=== PATIENT | female | born 2000 | race Caucasian/White ===

== ENCOUNTER 2019-04-28 18:09 | Inpatient (IN) | payer OTHER ==
--- NOTE | 2019-04-28 13:42 | PDOC.LDHP ---
Labor and Delivery H&P Chief complaint: scheduled induction HPI: 19 yo G1 @ 40w3d by 22 week sono who presents for IOL. Pt has h/o depression, controlled on Cymbalta. Antepartum course otherwise benign. Current gestational age (weeks): 40 Due date: 04/25/19 Dating criteria: second trimester ultrasound Grav: 1 Para: 0 Current complications: none Abnormal US findings: No Past Medical History: Depression Anxiety Current medications: pre- vitamins, other (Cymbalta) Previous surgical history: none Allergies/Adverse Reactions: Allergies Allergy/AdvReac Type Severity Reaction Status Date / Time No Known Allergies Allergy Unverified 04/28/19 18:57 Social history: none - Physical Exam Vital signs reviewed and normal: yes General: NAD Heart: RRR Lungs: nonlabored breathing Abdomen: gravid Extremeties: no edema FHT: category 1 (120s, mod jacinda, +accels, no decels) [place] contractions every: q2-5 min when tracing - Vaginal Exam cm dilated: 3 (cephalic, AROM clear ) Effacement: 75% Station: -2 - OB Labs Blood type: A RH: positive Antibody Screen: negative HIV: negative RPR: negative HEPSAg: negative 1 hour GCT: positive 3 hour GTT: wnl GBS: positive Urine drug screen: negative Rubella: immune - Assessment 40w3d IUP IOL Depression GBS + - Plan Plan: admit to L&D, cervical ripening (s/p cytotec s/p AROM), GBS antibiotic prophylaxis, informed consent obtained, anesthesia consult for pain management -: Continue pitocin
[2019-04-28] MEDS ORDERED: HYDROcodone/Acetaminophen 5/325 mg Tablet PO PRN ×2 (18:43)
[2019-04-28] MEDS ORDERED: hydrALAZINE 20 MG/ML VIAL SLOW IVP PRN (18:43)
[2019-04-28] MEDS ORDERED: Acetaminophen 500 MG TAB PO PRN (18:43)
[2019-04-28] MEDS ORDERED: Diphenoxylate HCl/Atropine Tablet PO PRN (18:43)
[2019-04-28] MEDS ORDERED: Promethazine HCl 25 MG/ML VIAL IM PRN (18:43)
[2019-04-28] MEDS ORDERED: Lidocaine 1% (PF) 30 ML VIAL SC PRN (18:43)
[2019-04-28] MEDS ORDERED: Ibuprofen 800 MG TAB PO PRN (18:43)
[2019-04-28] MEDS ORDERED: Ondansetron PF 4 MG/2 ML Vial IVP PRN (18:43)
[2019-04-28] MEDS ORDERED: Methylergonovine 0.2 MG/ML VIAL IM PRN (18:43)
[2019-04-28] MEDS ORDERED: Misoprostol 200 MCG TAB PR PRN (18:43)
[2019-04-28] MEDS ORDERED: Carboprost 250 MCG/ML AMP IM PRN (18:43)
[2019-04-28 18:55] VITALS: BMI 31.4
[2019-04-28] MEDS ORDERED: Penicillin G Potassium 5 MILL.UNITS in Sodium Chloride 0.9% 100 ML IVPB SCH (19:00)
[2019-04-28] MEDS: Lactated Ringer's 1,000 ML IV SCH (19:15)
[2019-04-28 19:27] LABS: Hemoglobin 12.1 g/dL (12.0-16.0); Mean Corpuscular HGB CONC 33.8 g/dL (32.0-36.0); Mean Corpuscular Hemoglobin 31.4 pg (25.0-35.0); Mean Corpuscular Volume 92.8 fL (78.0-98.0); Platelet Count 245 thou/uL (130-400); RBC Distribution Width 12.1 % (11.5-14.5); Red Blood Cell (RBC) Count 3.87 mill/uL (4.00-5.20)
[2019-04-28] MEDS: Misoprostol 100 MCG TAB VAG SCH ×2 (19:34→22:51)
[2019-04-28 20:08] LABS: Syphilis Antibody Nonreactive (Nonreactive); Syphilis Antibody Index 0.09 S/CO (<1.00 Non-Reactive)
[2019-04-28 20:09] LABS: HBSAg Index 0.16 S/CO (0-0.99); HIV (1/2) Antibody/Antigen Non-Reactive (NonReactive); HIV 1/2 INDEX 0.07 S/CO (<1.00); Hep B Surf Ag Non-Reactive S/CO (NonReactive)
[2019-04-28] MEDS: Penicillin G 2.5 MILL.units 2.5 MILL.UNITS in Premix Bag 1 BAG IVPB SCH (22:51)
[2019-04-29] MEDS: Lactated Ringer's 1,000 ML IV SCH ×2 (01:30→10:31)
[2019-04-29] MEDS: Butorphanol Tartrate 1 MG/ML VIAL SLOW IVP PRN ×2 (02:04→05:11)
[2019-04-29] MEDS: Penicillin G 2.5 MILL.units 2.5 MILL.UNITS in Premix Bag 1 BAG IVPB SCH ×4 (02:52→20:13)
[2019-04-29] MEDS: NS w/ Oxytocin 10 units 500 ML IV SCH (05:03)
[2019-04-29] MEDS: Misoprostol 100 MCG TAB VAG SCH ×3 (06:58→20:12)
[2019-04-29] MEDS ORDERED: Fentanyl 4 mcg/Bup 0.1% Cadd 100 ML ONE (07:16)
--- NOTE | 2019-04-29 11:47 | PDOC.LDPN ---
Labor & Delivery Progress Note - Subjective Subjective: comfortable - Objective Vital signs reviewed and normal: yes General: NAD Uterine fundus: non tender Dilation: 6 Effacement: 100% Station: 0 FHT: category 1 (120s, mod jacinda, +accels, early decels (min jacinda has resolved)) [place] contractions every: q2min FSE placed: yes - Assessment (1) 40 weeks gestation of Code(s): Z3A.40 - 40 WEEKS GESTATION OF Current Visit: Yes Status : Acute (2) Encounter for induction of labor Code(s): Z34.90 - ENCNTR FOR SUPRVSN OF NORMAL , UNSP, UNSP TRIMESTER Current Visit: Yes Status: Acute (3) Group B streptococcal carriage complicating Code(s): O99.820 - STREPTOCOCCUS B CARRIER STATE COMPLICATING Current Visit: Yes Status: Acute Plan: continue plan of care
[2019-04-29] MEDS ORDERED: Terbutaline Sulfate 1 MG/ML VIAL ONE (11:48)
--- NOTE | 2019-04-29 12:06 | PDOC.EVN ---
Event Note - Event Note Event Note: decel to 90s with intermittent recovery due to further descent and tachysystole. Pitocin d/c'ed, IVF bolus, position changes, O2 and terb given. Continue to monitor. 6/C/0. accel with scalp stimulation.
[2019-04-29] MEDS ORDERED: Terbutaline Sulfate 1 MG/ML VIAL SC SCH (12:15)
[2019-04-29] MEDS ORDERED: Lidocaine 1% (PF) 30 ML VIAL ONE (13:27)
[2019-04-29] MEDS ORDERED: Misoprostol 200 MCG TAB ONE (13:27)
[2019-04-29] MEDS ORDERED: Naloxone HCl 0.4 mg/ml Vial IVP PRN ×2 (13:28)
[2019-04-29] MEDS ORDERED: Promethazine HCl 25 MG/ML VIAL IM PRN (13:28)
[2019-04-29] MEDS ORDERED: Acetaminophen 325 MG TAB PO PRN (13:28)
[2019-04-29] MEDS ORDERED: Ondansetron PF 4 MG/2 ML Vial IVP PRN (13:28)
[2019-04-29] MEDS ORDERED: ePHEDrine/0.9% NaCl/PF SYRINGE 50 mg/10 ml SLOW IVP PRN (13:28)
[2019-04-29] MEDS ORDERED: diphenhydrAMINE 50 MG/ML VIAL IVP PRN (13:28)
[2019-04-29] MEDS ORDERED: Lactated Ringer's 500 ML IV PRN (13:28)
[2019-04-29] MEDS ORDERED: Fentanyl 4 mcg/Bupivacaine 0.1% Cassette 100 ML EPIDURAL SCH (13:30)
[2019-04-29] MEDS ORDERED: Communication Order-Pharmacy FS SCH (13:30)
--- NOTE | 2019-04-29 14:34 | PDOC.OPDEL ---
OB Operative/Delivery Note Delivery Dr/Surgeon: Tracy Rankin DO Pre-Delivery Diagnosis: elective induction Procedure/Post Delivery Dx: spontaneous vaginal delivery Weeks gestation: 40 Anesthesia: epidural - Findings A Sex: male - 1 min: 8 - 5 min: 8 - Additional Findings/Plan Placenta delivered: spontaneous Repaired Obstetrical Laceration: episiotomy (midline- 2nd degree) Estimated blood loss: EBL 400 cc Compilations/Other Findings: Infant in cephalic presentation with immediate dry at delivery Normal appearing placenta 2nd degree midline episiotomy made due to terminal decel at just prior to delivery and need to expedited delivery small left hymenal ring laceration Post delivery plan: routine recovery
[2019-04-29] MEDS: NS / Oxytocin 40 units/1000ml 1,000 ML IV PRN ×2 (14:41→15:56)
[2019-04-29] MEDS ORDERED: ePHEDrine/0.9% NaCl/PF SYRINGE 50 mg/10 ml ONE (18:00)
[2019-04-29] MEDS ORDERED: Bupivacaine 0.25% HCL 30 ML VIAL ONE (18:00)
[2019-04-29] MEDS ORDERED: Methylergonovine 0.2 MG/ML VIAL IM PRN (18:28)
[2019-04-29] MEDS ORDERED: Milk Of Magnesia 30 ML UDCUP PO PRN (18:28)
[2019-04-29] MEDS ORDERED: diphenhydrAMINE 25 MG CAP PO PRN (18:28)
[2019-04-29] MEDS ORDERED: Lanolin Ointment 7 GM TUBE TOP PRN (18:28)
[2019-04-29] MEDS ORDERED: Benzocaine-Menthol 82.5 ML CAN TOP PRN (18:28)
[2019-04-29] MEDS ORDERED: Bisacodyl 10 MG SUPP PR PRN (18:28)
[2019-04-29] MEDS ORDERED: Preparation H Ointment 28 GM TUBE PR PRN (18:28)
[2019-04-29] MEDS ORDERED: hydrALAZINE 20 MG/ML VIAL SLOW IVP PRN (18:28)
[2019-04-29] MEDS ORDERED: NS / Oxytocin 40 units/1000ml 1,000 ML IV SCH (18:28)
[2019-04-29] MEDS ORDERED: HYDROcodone/Acetaminophen 5/325 mg Tablet PO PRN (18:28)
[2019-04-29] MEDS: Docusate Calcium (SURFAK) 240 MG CAP PO SCH (20:14)
[2019-04-29] MEDS: Ibuprofen 800 MG TAB PO SCH (20:16)
[2019-04-30] MEDS: Lactated Ringer's 1,000 ML IV SCH ×3 (05:56→19:19)
[2019-04-30] MEDS: Ibuprofen 800 MG TAB PO SCH ×3 (05:59→21:30)
[2019-04-30] MEDS: NS w/ Oxytocin 10 units 500 ML IV SCH ×2 (06:02→19:19)
[2019-04-30 06:21] LABS: Hemoglobin 10.1 g/dL (12.0-16.0); Mean Corpuscular HGB CONC 33.5 g/dL (32.0-36.0); Mean Corpuscular Hemoglobin 31.1 pg (25.0-35.0); Mean Platelet Volume 8.5 fL (7.4-10.4); Platelet Count 188 thou/uL (130-400); RBC Distribution Width 12.2 % (11.5-14.5); Red Blood Cell (RBC) Count 3.24 mill/uL (4.00-5.20); White Blood Cell (WBC) Count 15.2 thou/uL (4.8-10.8)
[2019-04-30] MEDS: Misoprostol 100 MCG TAB VAG SCH ×4 (07:15→19:19)
--- NOTE | 2019-04-30 08:21 | PDOC.PP ---
Post Progress Note Post Day #: 1 Subjective: No concerns. Bottle feeding, interested in breast feeding and pumping. Moderate lochia. Pain controlled. PO intake tolerated: yes Flatus: yes Ambulation: yes Vital Signs (12 hours) Temp Pulse Resp BP Pulse Ox 04/30/19 08:10 98.1 F 72 20 105/59 L 98 04/30/19 04:05 98.4 F 95 18 112/56 L 04/29/19 23:40 97.9 F 81 18 107/55 L Weight Weight 183 lb - Physical Examination General: NAD Cardiovascular: RRR Respiratory: non-labored breathing Abdominal: no distention, appropriately TTP Fundus firm & at: below umbilicus Extremities: negative homans (B) Neurological: no gross focal deficits Psychiatric: A&Ox3, normal affect Result Diagrams: 04/30/19 06:04 Additional Labs: Post Labs Blood Type A POSITIVE 04/28/19 19:47 Hep Bs Antigen Non-Reactive S/CO (NonReactive) 04/28/19 19:09 (1) 40 weeks gestation of Code(s): Z3A.40 - 40 WEEKS GESTATION OF Status: Resolved (2) Encounter for induction of labor Code(s): Z34.90 - ENCNTR FOR SUPRVSN OF NORMAL , UNSP, UNSP TRIMESTER Status: Resolved (3) Group B streptococcal carriage complicating Code(s): O99.820 - STREPTOCOCCUS B CARRIER STATE COMPLICATING Status : Resolved (4) Vaginal delivery Code(s): O80 - ENCOUNTER FOR FULL-TERM UNCOMPLICATED DELIVERY Status: Acute - Assessment/Plan PPD1 VSSAF LC today Continue PP care Plan for d/c tomorrow due to P1.
[2019-04-30] MEDS: Prenatal Vitamin 1 TAB PO SCH (09:05)
[2019-04-30] MEDS: Docusate Calcium (SURFAK) 240 MG CAP PO SCH ×2 (09:05→21:30)
[2019-04-30] MEDS: Ferrous Sulfate 325 MG TAB PO SCH ×2 (09:06→15:22)
[2019-05-01 04:17] VITALS: TEMP 97.9
[2019-05-01] MEDS: Ibuprofen 800 MG TAB PO SCH (06:01)
[2019-05-01 08:18] VITALS: BP 105/61
--- NOTE | 2019-05-01 08:27 | PDOC.PP ---
Post Progress Note Post Day #: 2 Subjective: No concerns. Doing well. Breast feeding now. Minimal pain and lochia. PO intake tolerated: yes Flatus: yes Ambulation: yes Vital Signs (12 hours) Temp Pulse Resp BP Pulse Ox 05/01/19 08:16 97.9 F 83 20 105/61 98 05/01/19 04:16 97.9 F 78 16 107/67 98 05/01/19 00:00 97.7 F 72 16 117/72 97 Weight Weight 183 lb - Physical Examination General: NAD Cardiovascular: RRR Respiratory: non-labored breathing Abdominal: no distention, appropriately TTP Fundus firm & at: below umbilicus Extremities: negative homans (B) Neurological: no gross focal deficits Psychiatric: A&Ox3, normal affect Result Diagrams: 04/30/19 06:04 Additional Labs: Post Labs Blood Type A POSITIVE 04/28/19 19:47 Hep Bs Antigen Non-Reactive S/CO (NonReactive) 04/28/19 19:09 (1) 40 weeks gestation of Code(s): Z3A.40 - 40 WEEKS GESTATION OF Status: Resolved (2) Encounter for induction of labor Code(s): Z34.90 - ENCNTR FOR SUPRVSN OF NORMAL , UNSP, UNSP TRIMESTER Status: Resolved (3) Group B streptococcal carriage complicating Code(s): O99.820 - STREPTOCOCCUS B CARRIER STATE COMPLICATING Status : Resolved (4) Vaginal delivery Code(s): O80 - ENCOUNTER FOR FULL-TERM UNCOMPLICATED DELIVERY Status: Acute - Assessment/Plan PPD2 VSSAF Plan for d/c home today with
[2019-05-01] MEDS: Docusate Calcium (SURFAK) 240 MG CAP PO SCH (08:42)
[2019-05-01] MEDS: Ferrous Sulfate 325 MG TAB PO SCH ×2 (08:42→08:48)
[2019-05-01] MEDS: Prenatal Vitamin 1 TAB PO SCH (08:42)
[2019-05-01] MEDS: Lactated Ringer's 1,000 ML IV SCH (08:48)
[2019-05-01] MEDS: Misoprostol 100 MCG TAB VAG SCH (08:48)
== END 2019-05-01 14:15 | disposition home or self-care (01) | DRG 807 ==
LOC: L&D 18:09 → 3SE 04-29 18:08
PROVIDERS: ADMIT Obstetrics & Gynecology; ATTEND Obstetrics & Gynecology
PROC: 10E0XZZ Delivery of Products of Conception, External Approach (ICD-10-PCS; principal; 2019-04-30)
PROC: 3E033VJ Introduction of Other Hormone into Peripheral Vein, Percutaneous Approach (ICD-10-PCS; 2019-04-30)
PROC: 0W8NXZZ Division of Female Perineum, External Approach (ICD-10-PCS; 2019-04-30)
PROC: 10907ZC Drainage of Amniotic Fluid, Therapeutic from Products of Conception, Via Natural or Artificial Opening (ICD-10-PCS; 2019-04-30)
DX: O48.0 Post-term pregnancy (principal); Z37.0 Single live birth; Z3A.40 40 weeks gestation of pregnancy; O99.824 Streptococcus B carrier state complicating childbirth; O99.344 Other mental disorders complicating childbirth; F32.9 Major depressive disorder, single episode, unspecified
CPT/HCPCS: 36415; 85027; 86780; 86850; 86900; 86901; 87340; 87389; J0595; J2001; J2405; J2540; J2590; J3105; J3490; S0020

== ENCOUNTER 2021-08-18 12:52 | Outpatient (CLI) | payer OTHER | END 2021-08-18 12:53 | disposition home or self-care (01) | LOC: BICULT 12:52 | PROVIDERS: ATTEND Student in an Organized Health Care Education/Training Program | DX: N63.24 Unspecified lump in the left breast, lower inner quadrant (principal) ==